=== PATIENT | female | born 1940 | race African-American/Black ===

== ENCOUNTER 2020-01-29 13:46 | Inpatient (IN) | payer MEDICARE, OTHER ==
[~2020-01-29] VITALS: Ht 165.1 cm; Wt 44.5 kg
[~2020-01-29 13:46] MED LIST: ALT10; AMLO10TA4; METF500T; PRAV20TA; SITA100T11; TRIA1TAB3; VERA240C2
[2020-01-29] MEDS ORDERED: TETANUS, DIPHTHERIA, PERTUSSIS VAC/PF 0.5ML (>7YR OLD) IM ONE (14:45)
[2020-01-29 15:15] LABS: BASOPHILS % 0.6 % (0.0-2.0); EOSINOPHILS % 0.3 % (0.0-5.0); HEMATOCRIT. 42.3 % (36.0-48.0); HEMOGLOBIN. 14.6 g/dL (12.0-16.0); LYMPHOCYTES % 15.2 % (20.0-50.0); MEAN CORPUSCULAR HEMOGLOBIN 29.8 pg (28.0-32.0); MEAN CORPUSCULAR VOLUME 86.1 fL (81.0-99.0); MEAN PLATELET VOLUME 8.3 fl (7.4-10.4); MONOCYTES % 7.8 % (2.0-8.0); NEUTROPHILS % 76.1 % (40.0-76.0); PLATELET 235 x1000/uL (130-400); RED BLOOD CELL COUNT 4.91 mill/uL (4.2-5.4); RED CELL DISTRIBUTION WIDTH 13.8 % (11.6-14.6)
[2020-01-29 15:17] LABS: CHLORIDE 88 mEq/L (98-107)
[2020-01-29] MEDS ORDERED: CLONIDINE 0.1MG TABLET PO NR (20:30)
[2020-01-29 22:30] VITALS: BP 130/64
[2020-01-29] MEDS ORDERED: DEXTROSE 50% WATER 50ML SYRINGE IV PRN (22:30)
[2020-01-29] MEDS ORDERED: ONDANSETRON HCL 4MG/2ML INJ IV PRN (22:30)
[2020-01-29] MEDS ORDERED: ACETAMINOPHEN 325MG TABLET PO PRN (22:30)
[2020-01-30] VITALS (9 sets, daily range): BP systolic 89–181; BP diastolic 43–80
[2020-01-30] MEDS: SODIUM CHLORIDE 0.9% 1,000 ML IV SCH ×2 (01:19→11:55)
[2020-01-30 06:09] LABS: HEMATOCRIT. 37.6 % (36.0-48.0); HEMOGLOBIN. 13.1 g/dL (12.0-16.0); MEAN CORPUSCULAR HEMOGLOBIN 29.6 pg (28.0-32.0); MEAN PLATELET VOLUME 8.5 fl (7.4-10.4); PLATELET 231 x1000/uL (130-400); RED BLOOD CELL COUNT 4.42 mill/uL (4.2-5.4); RED CELL DISTRIBUTION WIDTH 13.6 % (11.6-14.6)
[2020-01-30] MEDS: BLOOD SUGAR DIAGNOSTIC STRIP TEST SCH ×4 (06:11→21:00)
[2020-01-30] MEDS: INSULIN LISPRO 100 UNITS/ML SUBCUT SCH ×4 (06:11→21:00)
[2020-01-30 06:20] LABS: CHLORIDE 92 mEq/L (98-107)
[2020-01-30 06:37] LABS: LDL CHOLESTEROL 57 mg/dL (5-100)
[2020-01-30 06:39] LABS: HDL CHOLESTEROL 88 mg/dL (40-59)
[2020-01-30] MEDS: AMLODIPINE 10MG TABLET PO SCH (08:44)
[2020-01-30] MEDS: ENOXAPARIN 30MG/0.3ML SYR SUBCUT SCH (08:44)
[2020-01-30] MEDS: METFORMIN HCL 500MG TABLET PO SCH ×2 (08:44→16:49)
[2020-01-30] MEDS ORDERED: LOSARTAN POTASSIUM 50 MG TABLET PO SCH (09:00)
[2020-01-30 12:45] LABS: PLATELET ESTIMATE NORMAL
[2020-01-30] MEDS ORDERED: METF-415 MT (13:14)
[2020-01-30] MEDS ORDERED: GLIM4TAB36 MT (13:15)
[2020-01-30] MEDS: LOSARTAN POTASSIUM 50 MG TABLET PO SCH (21:38)
[2020-01-31] VITALS (7 sets, daily range): BP systolic 131–176; BP diastolic 49–89
[2020-01-31] MEDS: SODIUM CHLORIDE 0.9% 1,000 ML IV SCH ×3 (00:03→18:02)
[2020-01-31] MEDS: BLOOD SUGAR DIAGNOSTIC STRIP TEST SCH ×4 (05:22→20:44)
[2020-01-31 06:20] LABS: CHLORIDE 99 mEq/L (98-107)
[2020-01-31] MEDS: INSULIN LISPRO 100 UNITS/ML SUBCUT SCH ×4 (07:50→20:44)
[2020-01-31] MEDS: AMLODIPINE 10MG TABLET PO SCH (08:51)
[2020-01-31] MEDS: LOSARTAN POTASSIUM 50 MG TABLET PO SCH ×2 (08:51→20:44)
[2020-01-31] MEDS: ENOXAPARIN 30MG/0.3ML SYR SUBCUT SCH (08:52)
[2020-01-31] MEDS: METFORMIN HCL 500MG TABLET PO SCH ×2 (08:52→17:44)
[2020-01-31] MEDS ORDERED: HYDR-4135 MT (12:27)
[2020-01-31] MEDS ORDERED: HYDRALAZINE HCL 100MG TABLET PO SCH (12:30)
[2020-01-31 14:42] LABS: CLARITY URINE CLEAR (CLEAR); COLOR URINE YELLOW (YELLOW); KETONES URINE NEGATIVE (NEGATIVE); LEUKOCYTE ESTERASE URINE TRACE (NEGATIVE); NITRITE URINE NEGATIVE (NEGATIVE); OCCULT BLOOD URINE NEGATIVE (NEGATIVE); PH URINE 7.5 (4.5-8.0); PROTEIN URINE 2+ (NEGATIVE); SPECIFIC GRAVITY URINE 1.013 (1.005-1.030)
[2020-02-01 00:03] VITALS: BP 157/57
[2020-02-01 04:00] VITALS: BP 136/51
[2020-02-01] MEDS: BLOOD SUGAR DIAGNOSTIC STRIP TEST SCH (05:46)
[2020-02-01] MEDS: INSULIN LISPRO 100 UNITS/ML SUBCUT SCH (05:46)
[2020-02-01] MEDS: ENOXAPARIN 30MG/0.3ML SYR SUBCUT SCH ×2 (09:00→09:17)
[2020-02-01] MEDS: LOSARTAN POTASSIUM 50 MG TABLET PO SCH (09:00)
[2020-02-01] MEDS: AMLODIPINE 10MG TABLET PO SCH (09:12)
[2020-02-01] MEDS: METFORMIN HCL 500MG TABLET PO SCH (09:15)
== END 2020-02-01 12:30 | disposition home or self-care (01) | DRG 305 ==
LOC: ER 14:25 → 6WST 17:31 → EDBEDREQ 17:42 → EDBEDREQTM 17:42 → ENRESERV 19:59
PROVIDERS: ADMIT Internal Medicine; ATTEND Internal Medicine
DX: I16.0 Hypertensive urgency (principal); E87.1 Hypo-osmolality and hyponatremia; Z68.1 Body mass index [BMI] 19.9 or less, adult; E44.1 Mild protein-calorie malnutrition; S01.81XA Laceration without foreign body of other part of head, initial encounter; E87.8 Other disorders of electrolyte and fluid balance, not elsewhere classified; F17.210 Nicotine dependence, cigarettes, uncomplicated; I10 Essential (primary) hypertension; W01.0XXA Fall on same level from slipping, tripping and stumbling without subsequent striking against object, initial encounter; R10.9 Unspecified abdominal pain; E11.9 Type 2 diabetes mellitus without complications; J44.9 Chronic obstructive pulmonary disease, unspecified; Z71.6 Tobacco abuse counseling; Y93.89 Activity, other specified; Y92.89 Other specified places as the place of occurrence of the external cause; Y99.8 Other external cause status
CPT/HCPCS: 36415; 80048; 80053; 80061; 81003; 82962; 83036; 84443; 85025; 90715; 93005; 97110; 97116; 97162; 97166; 97530; 97535; 99291; J1650; J1815; J2405; J7030